=== PATIENT | female | born 1990 | race Hispanic/Latino ===

== ENCOUNTER → 2021-11-04 10:50 | Outpatient (CLI) | payer OTHER, SELFPAY ==
[2021-11-04 14:16] LABS: COVID19 -Nasal RAPID Negative (Negative)
== END ==
PROVIDERS: PCP Student in an Organized Health Care Education/Training Program; Visit Provider Family Medicine Sleep Medicine
DX: Z20.822 Contact with and (suspected) exposure to COVID-19 (principal)
CPT/HCPCS: 87635; C9803

== ENCOUNTER → 2021-12-02 11:03 | Outpatient (CLI) | payer OTHER, SELFPAY ==
[2021-12-02 12:57] LABS: COVID19 -Nasal RAPID Negative (Negative)
== END ==
PROVIDERS: PCP Student in an Organized Health Care Education/Training Program; Visit Provider Family Medicine Sleep Medicine
DX: Z20.822 Contact with and (suspected) exposure to COVID-19 (principal)
CPT/HCPCS: 87635; C9803

== ENCOUNTER 2021-12-05 10:06 | Day surgery (SDC) | payer OTHER, SELFPAY ==
--- NOTE | 2021-12-05 | PATH_ITS ---
[facility] Accession Number: [id number] . 01 Material submitted: . PART A: duodenum - DUODENUM PART B: stomach - ANTRUM . 02 Diagnosis: A. Duodenum: Small bowel mucosa with no diagnostic abnormality. Negative for active inflammation, dysplasia, and malignancy. . B. Antrum: Portions of gastric antral mucosa with mild chronic gastritis. Negative for Helicobacter organisms by immunohistochemistry. Negative for intestinal metaplasia. Negative for dysplasia or malignancy. MRV 12/08/2021 1234 Local . 02 Electronically signed: . Mabel Villatoro MD, Pathologist NPI- [id number] . 01 Gross description: . Part A: DUODENUM: Received in formalin are 3 fragment(s) of nieves, soft tissue measuring 0.4 x 0.3 x 0.3 cm to 0.2 x 0.1 x 0.1 cm submitted entirely in 1 cassette(s) Part B: ANTRUM: Received in formalin are 2 fragment(s) of nieves, soft tissue measuring 0.3 x 0.1 x 0.1 cm to 0.1 x 0.1 x 0.1 cm submitted entirely in 1 cassette(s) /CPE 12/06/2021 1006 Local . 02 Microscopic: . B. An immunohistochemical stain is performed to evaluate for Helicobacter organisms and is negative. The control stain showed appropriate reactivity. . * This test was developed and its performance characteristics determined by [employer]. It has not been cleared or approved by the U.S. Food and Drug Administration. The FDA has determined that such clearance or approval is not necessary. This test is used for clinical purposes. It should not be regarded as investigational or for research. . 02 Pathologist provided ICD-10: R12, R14.0 . 02 CPT . 470993, 664961, Y84885 Specimen Comment: A courtesy copy of this report has been sent to [phone] Performed at: 01 [facility] [address] [id number] MD William Gray MD Phone: [phone] Performed at: 02 [facility] [address] [place] [id number] MD Bere Lowe MD Phone: [phone]
[2021-12-05 10:21] VITALS: BP 115/72; PULSE 59; RESP 16; TEMP 36.3; O2SAT 100; BMI 22.8
--- NOTE | 2021-12-05 11:13 | PM.HP.1 ---
History of Present Illness History of Present Illness Date Patient Seen: 12/05/21 Time Patient Seen: 11:14 Chief complaint: EGD W/POSS BX Narrative: I reviewed the note from September 20, [address] Blancas. No significant changes. Patient History Family & Social History Social History: household members spouse Tobacco & Substance use: Smoking Status Never smoker alcohol intake frequency holiday/special occasion Substance Use Type does not use Meds Home Medications and Allergies Home Medications Medication Instructions Recorded Confirmed Type sertraline 50 mg tablet 50 mg PO DAILY 11/04/21 12/05/21 History Allergies Allergy/AdvReac Type Severity Reaction Status Date / Time No Known Drug Allergies Allergy Verified 11/04/21 15:22 Review of Systems Review of Systems ROS: Yes All systems reviewed with the patient and are negative except as otherwise documented Exam Vital Signs (past 8 hours): - 12/05/21 10:21 Temperature 97.4 F L Pulse Rate 59 L Respiratory Rate 16 Blood Pressure 115/72 Pulse Oximetry 100 Oxygen Delivery Method Room Air Const General: cooperative and comfortable Orientation: alert HENMT Head: normocephalic Ears: external ears normal Nose: external nose normal Face and sinus: normal facial exam Mouth: oral mucosae normal Eyes General: appearance normal, both eyes and all related structures Neck Neck: normal visual inspection Chest Chest: normal inspection of the chest Resp Effort & Inspection: normal respiratory effort Cardio Rate: regular rate GI Inspection: normal to inspection Skin General: no rashes or lesions noted and No jaundice Neuro General: patient alert and moves all extremities Cognition: normal cognition Speech: speech normal Extrem General: no pedal edema Psych Appearance: grossly normal Assessment & Plan Assessment & Plan narrative: This is a 31-year-old female with chronic intermittent postprandial abdominal discomfort and bloating. EGD is pursued today. Time Spent With Patient Critical Care time: I spent a total of [] minutes of critical care time on this patient's care today; this time is exclusive of procedural time.
--- NOTE | 2021-12-05 11:15 | PM.PREOP ---
Pre-operative Note COVID-19 COVID-19 status: Negative Result date/Date tested (Pos, Neg/Pending): 12/02/21 Criteria for continued procedure: Possibility delay results in more complex future surgery or treatment Interval Note History & Physical reviewed/Exam performed by Physician: Yes Changes to H&P: No ASA Class (for procedural sedation): II
--- NOTE | 2021-12-05 12:02 | P.OP.EGD_ITS ---
Operative Date/Time/Diagnoses Date of procedure: 12/05/21 Time of procedure: 12:02 Pre-op diagnosis: Postprandial abdominal pain and bloating. Post-op diagnosis: same Procedure & Clinicians Study performed: EGD with biopsies Same procedure as scheduled: Yes Indications: Postprandial abdominal pain and bloating Surgeon: Mc Amaya Procedure Notes SCOAP/Timeout: Done Procedure in detail: After the risks and benefits were explained, written and verbal informed consent was obtained. The patient was brought into the procedure room and placed into the left lateral decubitus position. Please see nurse distribution designer note for sedation details. The scope was introduced into the mouth through the bite block and advanced under direct visualization to the 2nd portion of the duodenum. The scope was slowly withdrawn carefully examining the mucosa for any defects or lesions. Retroflexed views were accomplished in the stomach. The stomach was decompressed, the scope was then removed from the patient who tolerated the procedure well. Sedation minutes: 9 Complications: none Impression: 1. Duodenum: This was visually normal from the bulb through the 2nd portion. Random biopsies were taken in D2 for exclusion of sprue. 2. Stomach: No ulcers no outlet obstruction no mass lesions. Minimal gastropathy appreciated in the antral region and biopsies were thus acquired for exclusion of Helicobacter and or any other underlying histopathology. Retroflexed views of the LES were unremarkable. 3. Esophagus: The squamocolumnar junction correlated with the top of the gastric folds. GE junction was at approximately 36 cm from the incisors. The patient had a very subtle small sliding hiatal hernia apparent. No additional esophageal pathology appreciated throughout. Endoscopic diagnosis 1. Mild gastropathy 2. Very subtle small sliding hiatal hernia Post-procedure Plan for aftercare: 1. Await histopathology. 2. Follow up GI clinic with Dr. Blancas Disposition: PACU
[2021-12-05 12:04] VITALS: BP 98/49; PULSE 70; RESP 12; TEMP 36; O2SAT 98
[2021-12-05 12:10] VITALS: BP 101/57; PULSE 65; RESP 14; O2SAT 98
[2021-12-05 12:14] VITALS: BP 107/64; PULSE 65; RESP 14; O2SAT 98
[2021-12-05 12:25] VITALS: BP 107/65; PULSE 52; RESP 15; O2SAT 100
--- NOTE | 2021-12-05 12:35 | SUR.PHASEII ---
12/05/21-1235- dressed & Ready to go. sitting up in wheelchair in phase 2 . awaiting ride from [place]. Has discharge paperwork with her.
== END 2021-12-05 13:00 | disposition home or self-care (01) ==
PROVIDERS: PCP Student in an Organized Health Care Education/Training Program; Referring Provider Internal Medicine Gastroenterology; Visit Provider Internal Medicine Gastroenterology
PROC: 0DJ08ZZ Inspection of Upper Intestinal Tract, Via Natural or Artificial Opening Endoscopic (ICD-10-PCS; CPT 43235; principal; 2021-12-05 11:30)
DX: K29.50 Unspecified chronic gastritis without bleeding (principal); K31.9 Disease of stomach and duodenum, unspecified; K44.9 Diaphragmatic hernia without obstruction or gangrene
CPT/HCPCS: 43239; J2704

== ENCOUNTER 2023-04-17 19:26 | Emergency (ER) | payer OTHER, SELFPAY ==
[2023-04-17 19:30] VITALS: BP 123/70; PULSE 65; RESP 18; TEMP 36.6; O2SAT 100; BMI 23.8
--- NOTE | 2023-04-17 19:45 | DI.CT.S_ITS ---
PROCEDURE: CT ABDOMEN PELVIS W CON INDICATIONS: RLQ abd pain eval for appy TECHNIQUE: After the administration of IV contrast, axial sections were acquired from the lung bases to the pubic symphysis. Coronal and sagittal reformats were performed. For radiation dose reduction, the following was used: automated exposure control, adjustment of mA and/or kV according to patient size. COMPARISON: None. FINDINGS: Image quality: Excellent. Lung bases: There is mild dependent atelectasis. Heart: Heart is normal in size. ABDOMEN: Liver: There is a hypervascular enhancing oval lesion anteriorly within the left hepatic lobe in segment 4A measuring up to 1.0 cm on series 2, image 16. Gallbladder: Within normal limits without calcified gallstones. Biliary ducts: No biliary ductal dilatation. Pancreas: Unremarkable. Spleen: Normal in size. Adrenal Glands: No adrenal nodules. Kidneys and Ureters: No hydronephrosis. Stomach and Bowel: Stomach, small bowel loops, and colon are normal in caliber and wall thickness. The appendix is normal. Peritoneum: No abnormal intraperitoneal fluid. No free air. Ventral Wall: No hernia. Abdominal Nodes: No retroperitoneal or mesenteric adenopathy by size criteria. Vessels: Aorta and inferior vena cava are normal in size. PELVIS: Pelvic Organs: An IUD is demonstrated within the uterus. Bladder: Unremarkable. Pelvic Nodes: No enlarged lymph nodes. Miscellaneous: No inguinal hernias are seen. Bones: Visualized osseous structures demonstrate no suspicious focal lesions. IMPRESSION: 1. No definite acute intra-abdominal abnormality. Specifically, no evidence of appendicitis. 2. Small hypervascular enhancing lesion within the left hepatic lobe is suggestive of a flash filling hemangioma but is nonspecific. Consider follow-up liver protocol MRI when clinically feasible. Dictated by: William Castillo M.D. on 04/17/2023 at 21:36 Approved by: William Castillo M.D. on 04/17/2023 at 21:38
--- NOTE | 2023-04-17 19:45 | ED.GENADULT ---
HPI - General Adult General Chief complaint: Abdominal Pain Stated complaint: abd pain getting worse Time Seen by Provider: 04/17/23 19:40 Source: patient Mode of arrival: Ambulatory History of Present Illness HPI narrative: Patient is a 33-year-old female who is here for evaluation of right-sided/right lower quadrant abdominal pain that has been getting worse since its onset earlier today. No change in bowel habits. No urinary symptoms. No fevers. No prior abdominal surgeries. No vaginal bleeding. Has not tried anything for the symptoms prior to arrival. Related Data Home Medications Medication Instructions Recorded Confirmed sertraline 50 mg tablet 50 mg PO DAILY 11/04/21 12/05/21 Allergies Allergy/AdvReac Type Severity Reaction Status Date / Time No Known Drug Allergies Allergy Verified 11/04/21 15:22 Review of Systems Constitutional Constitutional: Reports system reviewed and no additional complaints, except as documented Gastrointestinal Gastrointestinal: Reports system reviewed and no additional complaints, except as documented Genitourinary Genitourinary: Reports system reviewed and no additional complaints, except as documented Integumentary/Breasts Skin/Breast: Reports system reviewed and no additional complaints, except as documented Patient History Social History household members: spouse Smoking Status: Never smoker Smoking Status: Never smoker alcohol intake frequency: holidays/special occasions only Substance Use Type: does not use Exam Initial Vital Signs Initial Vital Signs: Vital Signs Temperature 97.8 F 04/17/23 19:30 Pulse Rate 65 04/17/23 19:30 Respiratory Rate 18 04/17/23 19:30 Blood Pressure 123/70 04/17/23 19:30 Pulse Oximetry 100 04/17/23 19:30 Oxygen Delivery Method Room Air 04/17/23 19:30 Resp Effort & Inspection: normal respiratory effort Cardio Rate: regular rate GI Inspection: normal to inspection and non-distended Palpation: soft and tender (Right lower quadrant) Skin General: no rashes or lesions noted Neuro General: patient alert, patient awake and moves all extremities Course Orders Ordered: ED Orders 04/17/23 19:45 CT abdomen pelvis w con Stat Test Urine Stat 04/17/23 19:50 Complete Blood Count AUTO DIFF Stat Comprehensive Metabolic Panel Stat Lipase Stat Vital Signs Vital signs: Vital Signs - 8 hr 04/17/23 19:30 04/17/23 21:53 Temperature 97.8 F Pulse Rate 65 70 Respiratory Rate 18 16 Blood Pressure 123/70 101/65 Pulse Oximetry 100 97 Oxygen Delivery Method Room Air Room Air Medical Decision Making Lab Data Lab results reviewed: Yes I reviewed the patient's lab results. 04/17/23 19:50 04/17/23 19:50 Labs: Lab Results 04/17/23 04/17/23 04/17/23 Range/Units 19:45 19:50 19:50 WBC 7.2 (4.5-11.0) X10^3/uL RBC 4.31 (4.0-5.2) X10^6/uL Hgb 12.9 (12.0-16.0) g/dL Hct 38.1 (36-46) % MCV 88.4 (80-100) fL MCH 29.9 (26-34) PG MCHC 33.8 (30-36) % RDW 13.2 (11.6-14.8) % Plt Count 321 (150-400) X10^3/uL Neut % (Auto) 43.0 L (50-75) % Lymph % (Auto) 45.9 H (25-40) % [place] % (Auto) 8.4 (3-14) % Eos % (Auto) 1.7 L (2-4) % Baso % (Auto) 1.0 (0-2) % Neut # (Auto) 3100 (9897-0107) /uL Lymph # (Auto) 3300 (9602-5682) /uL [place] # (Auto) 600 (0-900) /uL Eos # (Auto) 100 (0-450) /uL Baso # (Auto) 100 (0-100) /uL Sodium 138 (137-145) mmol/L Potassium 3.6 (3.4-5.1) mmol/L Chloride 103 (98-107) mmol/L Carbon Dioxide 25 (22-32) mmol/L BUN 12 (7-17) mg/dL Creatinine 0.66 (0.52-1.04) mg/dL Estimated GFR > 60 (>60) mL/min BUN/Creatinine Ratio 18.2 (6-22) Glucose 97 (70-100) mg/dL Calcium 9.3 (8.4-10.2) mg/dL Total Bilirubin 0.4 (0.2-1.3) mg/dL AST 31 (14-36) IU/L ALT 41 H (<35) IU/L Alkaline Phosphatase 65 (38-126) U/L Total Protein 8.4 H (6.3-8.2) g/dL Albumin 4.6 (3.5-5.0) g/dL Globulin 3.8 (1.7-4.1) g/dL Albumin/Globulin Ratio 1.2 (1.0-2.8) Lipase 91 (23-300) U/L Urine Test Negative (Negative) Urine Dip Bedside Urine Glucose Negative Bedside Urine Bilirubin - Negative Bedside Urine Ketone - Negative Urine Specific [place] 1.000 Bedside Urine Occult Blood ++ Bedside Urine pH 6.0 Bedside Urine Protein - Negative Bedside Urine Urobilinogen - Negative Bedside Urine Nitrite - Negative Bedside Urine Leukocytes - Negative Esterase Point of care testing: Urine Dip Bedside Urine Glucose Negative Bedside Urine Bilirubin - Negative Bedside Urine Ketone - Negative Urine Specific [place] 1.000 Bedside Urine Occult Blood ++ Bedside Urine pH 6.0 Bedside Urine Protein - Negative Bedside Urine Urobilinogen - Negative Bedside Urine Nitrite - Negative Bedside Urine Leukocytes - Negative Esterase Imaging Data CT scan - abdomen/pelvis: Radiologist's Impression: PROCEDURE:? CT ABDOMEN PELVIS W CON ? INDICATIONS:? RLQ abd pain eval for appy ? TECHNIQUE:? After the administration of IV contrast, axial sections were acquired from the lung bases to the pubic symphysis.? Coronal and sagittal reformats were performed.? For radiation dose reduction, the following was used:? automated exposure control, adjustment of mA and/or kV according to patient size. ? COMPARISON:? None. ? FINDINGS:? Image quality:? Excellent.? ? Lung bases:? There is mild dependent atelectasis.? ? Heart:? Heart is normal in size. ? ? ABDOMEN: Liver:? There is a hypervascular enhancing oval lesion anteriorly within the left hepatic lobe in segment 4A measuring up to 1.0 cm on series 2, image 16. Gallbladder:? Within normal limits without calcified gallstones.? ? Biliary ducts:? No biliary ductal dilatation.? ? Pancreas:? Unremarkable.? ? Spleen:? Normal in size.? ? Adrenal Glands:? No adrenal nodules.? ? Kidneys and Ureters:? No hydronephrosis.? ? ? Stomach and Bowel:? Stomach, small bowel loops, and colon are normal in caliber and wall thickness.? The appendix is normal.? Peritoneum:? No abnormal intraperitoneal fluid.? No free air.? ? Ventral Wall: ? No hernia.? Abdominal Nodes:? No retroperitoneal or mesenteric adenopathy by size criteria.? Vessels:? Aorta and inferior vena cava are normal in size.? ? PELVIS: Pelvic Organs:? An IUD is demonstrated within the uterus.? ? Bladder:? Unremarkable.? ? Pelvic Nodes: No enlarged lymph nodes.? Miscellaneous: No inguinal hernias are seen. ? ? ? Bones:? Visualized osseous structures demonstrate no suspicious focal lesions. ? IMPRESSION:? ? 1.? No definite acute intra-abdominal abnormality.? Specifically, no evidence of appendicitis. ? 2. Small hypervascular enhancing lesion within the left hepatic lobe is suggestive of a flash filling hemangioma but is nonspecific.? Consider follow-up liver protocol MRI when clinically feasible.? MDM Narrative Medical decision making narrative: Benign exam, negative CT scan. Low suspicion that this is a gallbladder pathology. No indication for an ultrasound. Urine is negative. is negative. No signs of kidney stone. Unsure the exact etiology but patient is safe for discharge home. I suspect that her symptoms will improve over the next couple days. She was given strict return precautions. She expressed understanding and agreement. Discharge Plan Departure Patient Disposition: Home Clinical Impression: Abdominal pain Instructions: DI for Abdominal Pain-Adult Activity Restrictions/Additional Instructions: Your workup here in the emergency department is very reassuring it does not show any signs of an infection that would require antibiotics or any indication for the need for surgery. You can take Tylenol/ibuprofen for discomfort. Return to the emergency department for new symptoms. Prescriptions: No Action sertraline 50 mg tablet 50 mg PO DAILY Referrals: Mandi Peraza MD [Primary Care Provider] - Stand Alone Forms: Patient Portal/API
[2023-04-17 19:59] LABS: Add Manual Diff / Slide Review NO; Basophils Absolute Auto 100 /uL (0-100); Eosinophils Absolute Auto 100 /uL (0-450); Eosinophils Percent Auto 1.7 % (2-4); Hematocrit 38.1 % (36-46); Hemoglobin 12.9 g/dL (12.0-16.0); Lymphocytes Absolute Auto 3300 /uL (1100-4500); Lymphocytes Percent Auto 45.9 % (25-40); Mean Corpuscular HGB Conc 33.8 % (30-36); Mean Corpuscular Hemoglobin 29.9 PG (26-34); Mean Corpuscular Volume 88.4 fL (80-100); Monocytes Absolute Auto 600 /uL (0-900); Monocytes Percent Auto 8.4 % (3-14); Neutrophils Absolute Auto 3100 /uL (1500-7000); Platelet Count 321 X10^3/uL (150-400); Red Blood Cell Count 4.31 X10^6/uL (4.0-5.2); Red Cell Distribution Width 13.2 % (11.6-14.8); White Blood Cell Count 7.2 X10^3/uL (4.5-11.0)
[2023-04-17 20:10] LABS: Pregnancy Test Urine Negative (Negative)
[2023-04-17 20:13] LABS: Alanine Aminotransferase 41 IU/L (<35); Albumin 4.6 g/dL (3.5-5.0); Albumin Globulin Ratio 1.2 (1.0-2.8); Alkaline Phosphatase 65 U/L (38-126); Aspartate Aminotransferase 31 IU/L (14-36); BUN Creatinine Ratio 18.2 (6-22); Bilirubin Total 0.4 mg/dL (0.2-1.3); Blood Urea Nitrogen 12 mg/dL (7-17); Calcium 9.3 mg/dL (8.4-10.2); Carbon Dioxide 25 mmol/L (22-32); Chloride 103 mmol/L (98-107); Estimated Glomerular Filt Rate > 60 mL/min (>60); Globulin 3.8 g/dL (1.7-4.1); Glucose 97 mg/dL (70-100); HEMOLYSIS < 15 (0-50); Lipase 91 U/L (23-300); Potassium 3.6 mmol/L (3.4-5.1); Sodium 138 mmol/L (137-145); Total Protein 8.4 g/dL (6.3-8.2)
[2023-04-17 21:53] VITALS: BP 101/65; PULSE 70; RESP 16; O2SAT 97
== END 2023-04-17 21:55 | disposition home or self-care (01) ==
PROVIDERS: Emergency Provider Emergency Medicine; PCP Student in an Organized Health Care Education/Training Program
DX: R10.31 Right lower quadrant pain (principal)
CPT/HCPCS: 36415; 74177; 80053; 81003; 81025; 83690; 85025; 99283; 99284; Q9967

== ENCOUNTER 2023-05-16 10:04 | Day surgery (SDC) | payer OTHER, SELFPAY ==
[2023-05-16 10:19] VITALS: BMI 23.0
[2023-05-16 10:23] VITALS: BP 122/82; PULSE 62; RESP 16; TEMP 36.3; O2SAT 100
--- NOTE | 2023-05-16 10:26 | PM.HP.1 ---
History of Present Illness History of Present Illness Date Patient Seen: 05/16/23 Chief complaint: Colonoscopy Narrative: Rectal discharge [facility] Social History household members: spouse Smoking Status: Never smoker alcohol intake: current Meds Home Medications and Allergies Home Medications Medication Instructions Recorded Confirmed Type sertraline 50 mg tablet 50 mg PO DAILY 11/04/21 05/16/23 History Allergies Allergy/AdvReac Type Severity Reaction Status Date / Time No Known Drug Allergies Allergy Verified 05/16/23 10:17 Exam Vital Signs (past 8 hours): - 05/16/23 10:23 Temperature 97.3 F L Pulse Rate 62 Respiratory Rate 16 Blood Pressure 122/82 Pulse Oximetry 100 Oxygen Delivery Method Room Air Oxygen Delivery Method Room Air Narrative Exam Narrative: Oropharynx free of lesions Chest clear to auscultation percussion Cardiac exam reveals no S3 or murmur Assessment & Plan Assessment & Plan narrative: Rectal discharge need for colonoscopy to rule out underlying colitis. Risks, benefits, alternatives have been explained.
--- NOTE | 2023-05-16 10:27 | PM.OP.COLON ---
Operative Date/Time/Diagnoses Date of procedure: 05/16/23 Pre-op diagnosis: See indication and findings Procedure & Clinicians Study performed: Colonoscopy Indications: Rectal discharge Surgeon: Sanjiv Keyes Procedure Notes Procedure in detail: After informed consent was obtained the patient was placed in left lateral decubitus position. The video colonoscope was introduced the rectum slowly advanced cecum. On slow withdrawal mucosa was carefully examined. The scope was removed. The patient tolerated procedure well. Preparation was good. Blood loss none Complications none Sedation mac Findings 1. Normal terminal ileum 2. Normal colonoscopy to cecum. 3. Normal rectum with very careful evaluation in an excellent preparation I will go ahead and order an abdominal pelvic CT scan as per Dr. Madrigal was orders. He can then follow up with her to discuss. This CT scan however should complete her workup.
[2023-05-16] MEDS: LACTATED RINGERS 1,000 ML 42 ML IV (10:28)
--- NOTE | 2023-05-16 10:28 | SUR.PREOP ---
Patient denied ability to urinate for test. She reported having an IUD and being on her period. Dr. Keyes notified.
[2023-05-16 10:59] VITALS: BP 90/51; PULSE 74; RESP 15; TEMP 35.9; O2SAT 96
[2023-05-16 11:04] VITALS: BP 99/61; PULSE 59; RESP 14; O2SAT 100
[2023-05-16 11:08] VITALS: BP 91/53; PULSE 68; RESP 16; O2SAT 100
[2023-05-16 11:12] VITALS: BP 91/53; PULSE 61; RESP 15; O2SAT 100
== END 2023-05-16 11:40 | disposition home or self-care (01) ==
PROVIDERS: PCP Student in an Organized Health Care Education/Training Program; Referring Provider Internal Medicine Gastroenterology; Visit Provider Internal Medicine Gastroenterology
PROC: 0DJD8ZZ Inspection of Lower Intestinal Tract, Via Natural or Artificial Opening Endoscopic (ICD-10-PCS; CPT 45378; principal; 2023-05-16 11:00)
DX: R19.8 Other specified symptoms and signs involving the digestive system and abdomen (principal); K30 Functional dyspepsia; R14.0 Abdominal distension (gaseous); E73.9 Lactose intolerance, unspecified; K90.41 Non-celiac gluten sensitivity; F32.9 Major depressive disorder, single episode, unspecified
CPT/HCPCS: 45378; J2704